=== PATIENT | male | born 1995 | race Caucasian/White ===

== ENCOUNTER 2017-09-02 16:01 | Emergency (ER) | END 2017-09-02 18:29 | disposition home or self-care (01) ==

== ENCOUNTER 2019-02-17 20:45 | Emergency (ER) | payer SELFPAY ==
[~2019-02-17] VITALS: Ht 175.3 cm; Wt 75.5 kg
[~2019-02-17 20:45] MED LIST: ACET500C5 PO; CYCL10TA7 PO
[2019-02-17 20:52] VITALS: BP 112/51; PULSE 55; RESP 16; Ht 175.3 cm; Wt 75.5 kg
[2019-02-17] MEDS ORDERED: LIDOCAINE 1% (MDV) 20 ML INJ SC ONE (21:30)
[2019-02-17] MEDS ORDERED: DIPHTH/TET/ACEL PERTUSS (ADULT) 0.5 ML VIAL IM* ONE (21:30)
[2019-02-17] MEDS ORDERED: morphine 2 MG INJ IV STA (21:36)
[2019-02-17] MEDS ORDERED: CEFAZOLIN 1 GM/50 ML (PMX) 50 ML IVPB SCH (22:00)
[2019-02-17] MEDS ORDERED: HYDR-4011 PO (22:23)
[2019-02-17] MEDS ORDERED: AMOX1TAB10 PO (22:23)
[2019-02-17] MEDS ORDERED: NALO4SPR NS (22:25)
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
== END 2019-02-17 22:36 | disposition home or self-care (01) ==
LOC: FTE 20:45 → E/R 22:36
DX: S61.512A Laceration without foreign body of left wrist, initial encounter (principal); X94.0XXA Assault by shotgun, initial encounter; Z23 Encounter for immunization
CPT/HCPCS: 12002; 73110; 80048; 85025; 90471; 90715; 96374; 99284; J0690; J2270